=== PATIENT | male | born 1950 | race Caucasian/White ===

== ENCOUNTER → 2016-07-03 | Outpatient (REF) | payer BC, OTHER | LOC: M LAB REF 13:07 | PROVIDERS: ATTEND Family Medicine | DX: Z01.89 Encounter for other specified special examinations (principal) ==

== ENCOUNTER → 2017-08-06 | Outpatient (REF) | payer OTHER | LOC: M LAB REF 17:30 | DX: J06.9 Acute upper respiratory infection, unspecified (principal) | CPT/HCPCS: 87070 ==

== ENCOUNTER → 2020-02-13 | Outpatient (REF) | payer MEDICARE | LOC: M LAB REF 12:13 | PROVIDERS: ATTEND Family Medicine | DX: R63.4 Abnormal weight loss (principal) ==

== ENCOUNTER → 2020-03-14 | Outpatient (CLI) | payer MEDICARE ==
[~2020-03-14] MED LIST: CETI10CA13 PO; SIMV20TA22; SPIR1CAP; SYMB16INH
== END ==
LOC: M LABSMTC 08:23
PROVIDERS: ATTEND Anesthesiology
DX: Z01.812 Encounter for preprocedural laboratory examination (principal); Z20.828 Contact with and (suspected) exposure to other viral communicable diseases
CPT/HCPCS: C9803; U0003

== ENCOUNTER 2020-03-19 08:41 | Day surgery (SDC) | payer MEDICARE ==
[~2020-03-19] VITALS: Ht 182.9 cm; Wt 64.0 kg
[~2020-03-19 08:41] MED LIST changes: +LIDOCAINE 2% 100MG/5ML SDV (FOR ANES.) As Ordered ONE; +NS 1,000 ML IV ONE; +propofoL 200 MG/20 ML VIAL As Ordered ONE
[2020-03-19] MEDS ORDERED: PHENYLephrine HCL 500 MCG/5 ML (100MCG/ML) SYRINGE (J2370) As Ordered ONE (09:41)
--- NOTE | 2020-03-19 10:09 | ROOR ---
Patient Name: Max Orta Procedure Date: 03/19/2020 9:18 AM Date of : 1950 Age: 69 Room: [facility] Gender: Male Note Status: Finalized Procedure: Upper GI endoscopy Indications: Heartburn, Weight loss Providers: Max Short MD Referring MD: Javier Abdul MD Requesting Provider: Medicines: Monitored Anesthesia Care Complications: No immediate complications. Procedure: Pre-Anesthesia Assessment: - Prior to the procedure, a History and Physical was performed, and patient medications and allergies were reviewed. The patient is competent. The risks and benefits of the procedure and the sedation options and risks were discussed with the patient. All questions were answered and informed consent was obtained. Patient identification and proposed procedure were verified by the physician, the nurse and the anesthesiologist in the procedure room. Mental Status Examination: alert and oriented. Airway Examination: normal oropharyngeal airway and neck mobility. CV Examination: regular rate and rhythm. Prophylactic Antibiotics: The patient does not require prophylactic antibiotics. Prior Anticoagulants: The patient has taken no previous anticoagulant or antiplatelet agents. ASA Grade Assessment: II - A patient with mild systemic disease. After reviewing the risks and benefits, the patient was deemed in satisfactory condition to undergo the procedure. The anesthesia plan was to use monitored anesthesia care (MAC). Immediately prior to administration of medications, the patient was re-assessed for adequacy to receive sedatives. The heart rate, respiratory rate, oxygen saturations, blood pressure, adequacy of pulmonary ventilation, and response to care were monitored throughout the procedure. The physical status of the patient was re-assessed after the procedure. The Endoscope was introduced through the mouth, and advanced to the second part of duodenum. The upper GI endoscopy was accomplished without difficulty. The patient tolerated the procedure well. Findings: The examined esophagus was normal. Patchy mildly erythematous mucosa without bleeding was found on the greater curvature of the stomach. Biopsies were taken with a cold forceps for histology. The first portion of the duodenum and second portion of the duodenum were normal. Biopsies for histology were taken with a cold forceps for evaluation of celiac disease. Impression: - Normal esophagus. - Erythematous mucosa in the greater curvature. Biopsied. - Normal first portion of the duodenum and second portion of the duodenum. Biopsied. Recommendation: - Discharge patient to home. - Resume previous diet. - Continue present medications. - Await pathology results. - Return to endoscopist in 1 week. Max Short MD Max Short MD 03/19/2020 10:08:33 AM Electronically signed by Max Short MD Number of Addenda: 0 Note Initiated On: 03/19/2020 9:18 AM Estimated Blood Loss: Estimated blood loss was minimal.
--- NOTE | 2020-03-19 10:17 | ROOR ---
Patient Name: Max Orta Procedure Date: 03/19/2020 9:19 AM Date of : 1950 Age: 69 Room: [facility] Gender: Male Note Status: Finalized Procedure: Colonoscopy Indications: Family history of colon cancer, Personal history of colonic polyps, Weight loss Providers: Max Short MD Referring MD: Javier Abdul MD Requesting Provider: Medicines: Monitored Anesthesia Care Complications: No immediate complications. Procedure: Pre-Anesthesia Assessment: - Prior to the procedure, a History and Physical was performed, and patient medications and allergies were reviewed. The patient is competent. The risks and benefits of the procedure and the sedation options and risks were discussed with the patient. All questions were answered and informed consent was obtained. Patient identification and proposed procedure were verified by the physician, the nurse and the anesthesiologist in the procedure room. Mental Status Examination: alert and oriented. Airway Examination: normal oropharyngeal airway and neck mobility. CV Examination: regular rate and rhythm. Prophylactic Antibiotics: The patient does not require prophylactic antibiotics. Prior Anticoagulants: The patient has taken no previous anticoagulant or antiplatelet agents. ASA Grade Assessment: II - A patient with mild systemic disease. After reviewing the risks and benefits, the patient was deemed in satisfactory condition to undergo the procedure. The anesthesia plan was to use monitored anesthesia care (MAC). Immediately prior to administration of medications, the patient was re-assessed for adequacy to receive sedatives. The heart rate, respiratory rate, oxygen saturations, blood pressure, adequacy of pulmonary ventilation, and response to care were monitored throughout the procedure. The physical status of the patient was re-assessed after the procedure. The Colonoscope was introduced through the anus and advanced to the terminal ileum. The colonoscopy was performed without difficulty. The patient tolerated the procedure well. The quality of the bowel preparation was good. Findings: Hemorrhoids were found on perianal exam. The terminal ileum appeared normal. Multiple medium-mouthed diverticula were found in the sigmoid colon, descending colon and transverse colon. Impression: - Hemorrhoids found on perianal exam. - The examined portion of the ileum was normal. - Diverticulosis in the sigmoid colon, in the descending colon and in the transverse colon. - No specimens collected. Recommendation: - Discharge patient to home. - Resume previous diet. - Continue present medications. Max Short MD Max Short MD 03/19/2020 10:16:40 AM Electronically signed by Max Short MD Number of Addenda: 0 Note Initiated On: 03/19/2020 9:19 AM Estimated Blood Loss: Estimated blood loss: none.
[2020-03-19 10:40] VITALS: BP 136/66
== END 2020-03-19 10:42 | disposition home or self-care (01) ==
LOC: M OPP 08:41
PROVIDERS: ATTEND Surgery
DX: Z12.11 Encounter for screening for malignant neoplasm of colon (principal); Z86.010 Personal history of colon polyps; Z80.0 Family history of malignant neoplasm of digestive organs; K57.30 Diverticulosis of large intestine without perforation or abscess without bleeding; K64.8 Other hemorrhoids; R63.4 Abnormal weight loss; K31.89 Other diseases of stomach and duodenum; R12 Heartburn; K29.70 Gastritis, unspecified, without bleeding; Z79.899 Other long term (current) drug therapy; Z88.0 Allergy status to penicillin; Z88.1 Allergy status to other antibiotic agents; Z91.030 Bee allergy status
CPT/HCPCS: 43239; 88305; G0105; J2370

== ENCOUNTER 2020-05-05 18:17 | Emergency (ER) | payer MEDICARE ==
[~2020-05-05] VITALS: Ht 182.9 cm; Wt 66.1 kg
[~2020-05-05 18:17] MED LIST changes: -LIDOCAINE 2% 100MG/5ML SDV (FOR ANES.) As Ordered ONE; -NS 1,000 ML IV ONE; -propofoL 200 MG/20 ML VIAL As Ordered ONE
[2020-05-05] MEDS ORDERED: IBUP-1022 PO (18:32)
--- NOTE | 2020-05-05 19:00 | REP ---
INDICATION: pain COMPARISON: None. TECHNIQUE: AP, lateral, bilateral oblique views right foot. FINDINGS: Age-related changes. The osseous structures and joint spaces are intact and relatively normal. There is no evidence for acute fracture or dislocation. Surrounding soft tissues are unremarkable. No subcutaneous emphysema or radiodense foreign body. IMPRESSION: Age-related changes. No acute fracture or dislocation. <Electronically signed by Crow Wayne > 05/05/20 [id number]
[2020-05-05 20:43] VITALS: BP 133/71
== END 2020-05-05 20:44 | disposition home or self-care (01) ==
LOC: M ED 18:17
DX: S93.601A Unspecified sprain of right foot, initial encounter (principal); X50.9XXA Other and unspecified overexertion or strenuous movements or postures, initial encounter; Y92.89 Other specified places as the place of occurrence of the external cause; J45.909 Unspecified asthma, uncomplicated; G62.9 Polyneuropathy, unspecified; M47.899 Other spondylosis, site unspecified; Z79.899 Other long term (current) drug therapy; Z88.0 Allergy status to penicillin; Z88.1 Allergy status to other antibiotic agents; Z88.2 Allergy status to sulfonamides; Z91.030 Bee allergy status; Z87.891 Personal history of nicotine dependence

== ENCOUNTER → 2020-08-20 | Outpatient (CLI) | payer MEDICARE ==
[~2020-08-20] MED LIST changes: +IBUP-1022 PO
--- NOTE | 2020-08-20 10:46 | REP ---
INDICATION: COUGH. COMPARISON: No comparison chest radiograph. TECHNIQUE: Four views, 2 lateral and 2 AP radiographs... FINDINGS: The lungs are well inflated and free of focal infiltrate. There are scattered granulomatous calcifications on the left. Pleural angles are sharp. Heart size is normal. There are degenerative changes in the thoracic spine. Pulmonary vasculature is not increased. IMPRESSION: No active disease.. <Electronically signed by Omari Cannon > 08/20/20 [id number]
== END ==
LOC: M WUC 09:17
PROVIDERS: ATTEND Family Medicine
DX: M51.34 Other intervertebral disc degeneration, thoracic region (principal); R05 Cough

== ENCOUNTER → 2020-11-16 | Outpatient (CLI) | payer MEDICARE ==
--- NOTE | 2020-11-16 19:20 | REPVR ---
PROCEDURE INFORMATION: Exam: MR Lumbar Spine Without Contrast Exam date and time: 11/16/2020 6:19 PM Age: 70 years old Clinical indication: Low back pain; Additional info: Ddd L region TECHNIQUE: Imaging protocol: Multiplanar magnetic resonance images of the lumbar spine without intravenous contrast. COMPARISON: No relevant prior studies available. FINDINGS: Vertebrae: No acute compression fracture in the lumbar spine. Normal alignment. Diffuse degenerative facet arthropathy. Spinal cord: The conus medullaris is normal appearance at the T12-L1 level. L1-L2: There is a small midline annular tear. No disc herniation, significant spinal canal stenosis or neural foraminal narrowing. L2-L3: Mild spinal canal stenosis without neural foraminal narrowing. L3-L4: Mildly bulging annulus with resultant mild spinal canal stenosis. There is narrowing of the lateral recesses without evidence of compression of the exiting L4 nerve roots. The neural foramina are patent. L4-L5: Moderate spinal canal stenosis due to left paracentral disc herniation compressing the thecal sac and the exiting left L5 nerve root series 601, image 1 frames 6, 7. The right lateral recess is also narrowed which may affect the right L5 nerve root as well. An osteophyte narrows the proximal right neural foramen which may affect the right L4 nerve root. Series 601, image 1 frame 9. L5-S1: No significant spinal canal stenosis or neural foraminal narrowing. Soft tissues: Unremarkable. 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 There may also be compromise of the right L4 and L5 nerve roots at this level. Electronically signed by: Adenike Bodn On 11/16/2020 19:20:23 PM
== END ==
LOC: M RAD 15:59
PROVIDERS: ATTEND Orthopaedic Surgery
DX: M51.36 Other intervertebral disc degeneration, lumbar region (principal); M48.061 Spinal stenosis, lumbar region without neurogenic claudication

== ENCOUNTER → 2021-05-10 | Outpatient (REF) | payer MEDICARE | LOC: M LAB REF 11:13 | PROVIDERS: ATTEND Family Medicine | DX: D64.9 Anemia, unspecified (principal) ==

== ENCOUNTER → 2022-09-26 | Outpatient (CLI) | payer OTHER | LOC: M RAD 08:09 | PROVIDERS: ATTEND Family Medicine | DX: F17.200 Nicotine dependence, unspecified, uncomplicated (principal); Z13.6 Encounter for screening for cardiovascular disorders ==

== ENCOUNTER → 2023-02-01 | Outpatient (REF) | payer OTHER ==
[2023-02-06 18:20] LABS: % LABILE ALKALINE PHOSPHATASE 70.3 %
== END ==
LOC: M LAB REF 16:16
PROVIDERS: ATTEND Family Medicine
DX: R74.8 Abnormal levels of other serum enzymes (principal)

== ENCOUNTER → 2023-02-26 | Outpatient (CLI) | payer OTHER | LOC: M RAD 12:47 | PROVIDERS: ATTEND Family Medicine | DX: R74.8 Abnormal levels of other serum enzymes (principal) | CPT/HCPCS: 78306; A9503 ==

== ENCOUNTER → 2023-03-05 | Outpatient (CLI) | payer OTHER | LOC: M WHC 08:55 | PROVIDERS: ATTEND Family Medicine | DX: R74.8 Abnormal levels of other serum enzymes (principal) ==

== ENCOUNTER → 2023-11-29 | Outpatient (CLI) | payer OTHER | LOC: M RAD 07:14 | PROVIDERS: ATTEND Physician Assistant | DX: I65.23 Occlusion and stenosis of bilateral carotid arteries (principal) ==

== ENCOUNTER → 2024-04-11 | Outpatient (CLI) | payer OTHER ==
[~2024-04-11] MED LIST changes: +ACET-683 PO; +ATOR80TA59 PO; +ECOT81TA5 PO; +GABA-1172 PO; +METO1TAB87 PO; +NITR0.4S14 SL; -SYMB16INH; +SYMB16INH INH; +THERTAB65 PO; +TREL1AER PO
== END ==
LOC: M WUC 11:32
PROVIDERS: ATTEND Nurse Practitioner Family
DX: S22.41XA Multiple fractures of ribs, right side, initial encounter for closed fracture (principal); J94.8 Other specified pleural conditions; R07.82 Intercostal pain; W01.10XA Fall on same level from slipping, tripping and stumbling with subsequent striking against unspecified object, initial encounter; Y93.9 Activity, unspecified; Y92.9 Unspecified place or not applicable

== ENCOUNTER → 2024-04-21 | Outpatient (CLI) | payer OTHER | LOC: M WUC 10:08 | PROVIDERS: ATTEND Internal Medicine Pulmonary Disease | DX: J45.20 Mild intermittent asthma, uncomplicated (principal) ==

== ENCOUNTER → 2024-08-20 | Outpatient (CLI) | payer MEDICAID, MEDICARE, OTHER | LOC: M RAD 08:49 | PROVIDERS: ATTEND Family Medicine | DX: R74.8 Abnormal levels of other serum enzymes (principal) ==